=== PATIENT | male | born 1990 | race African-American/Black ===

== ENCOUNTER 2018-04-15 23:01 | Emergency (ER) | payer MEDICAID ==
[~2018-04-15] VITALS: Ht 182.9 cm; Wt 112.0 kg
[2018-04-16] MEDS ORDERED: KETOROLAC 60MG/2ML VIAL IM STA (04:38)
[2018-04-16] MEDS ORDERED: BACITRACIN ZINC OINT UDPKT TOP ONE (04:45)
[2018-04-16] MEDS ORDERED: LIDOCAINE HCL 1% 20ML VIAL (Pyxis) INJ INFIL ONE (04:45)
[2018-04-16] MEDS ORDERED: LIDOCAINE HCL/PF 1% 10 MG/ML 5ML VIAL IJ SCH ×2 (07:15)
[2018-04-16 08:00] VITALS: BP 120/68
== END 2018-04-16 08:59 | disposition home or self-care (01) ==
LOC: ER 04-16 03:02
DX: S61.214A Laceration without foreign body of right ring finger without damage to nail, initial encounter (principal); F41.9 Anxiety disorder, unspecified; F14.10 Cocaine abuse, uncomplicated; F17.200 Nicotine dependence, unspecified, uncomplicated; W26.0XXA Contact with knife, initial encounter; Y93.89 Activity, other specified; Y92.018 Other place in single-family (private) house as the place of occurrence of the external cause
CPT/HCPCS: 12001; 73130; 96372; 99284; J1885; J3490; Z7610